=== PATIENT | female | born 1960 | race Caucasian/White ===

== ENCOUNTER → 2016-04-25 | Outpatient (CLI) | payer BC ==
--- NOTE | 2016-04-25 11:53 | DI ---
Indication: ITS.REASON: LEFT MIXED HEARING LOSS CT TEMPORAL BONES W/O CONTRAST: Comparison: None Technique: Patient is scanned utilizing thin section high-resolution imaging through the temporal bones without intravenous contrast. Dose reduction imaging technology is utilized. Reformatted sagittal, coronal and axial images are all provided. Findings: The visualized sinuses showed a left ethmoid is opacified. The mastoids are unremarkable. IAC regions are bilaterally symmetrical. No masses or bony destruction is identified. Visualized structures of the middle and internal ears showed no definitive abnormality. No other acute findings are noted. Impression: 1. Temporal bone imaging with high-resolution thin section imaging fails to show definitive significant asymmetry or acute findings. 2. One of the ethmoid air cells on the left side is opacified. .
== END ==
LOC: IMA 07:33
PROVIDERS: ATTEND Otolaryngology Otology & Neurotology
DX: H90.72 Mixed conductive and sensorineural hearing loss, unilateral, left ear, with unrestricted hearing on the contralateral side (principal); J34.89 Other specified disorders of nose and nasal sinuses